=== PATIENT | female | born 2000 | race Caucasian/White ===

== ENCOUNTER 2023-07-03 06:28 | Emergency (ER) | payer BC, SELFPAY ==
[2023-07-03 06:42] VITALS: BP 111/78; PULSE 82; RESP 20; TEMP 36.4; O2SAT 98; BMI 32.9
--- NOTE | 2023-07-03 07:04 | ED.GENADULT ---
HPI - General Adult General Chief complaint: Chest Pain Stated complaint: Chest pain, R arm tingling Time Seen by Provider: 07/03/23 06:50 Source: patient Mode of arrival: ambulatory Limitations: no limitations History of Present Illness HPI narrative: 23-year-old female presents the emergency department with intermittent chest pain for the past week. Describes it as a burning sensation that is in the epigastrium, radiating up the anterior chest. Started about 1 hour prior to arrival of this morning. Not accompanied by dizziness, shortness of breath, syncope or neurological changes. It radiated into the right arm briefly today, no other effects. Has not tried Tylenol, ibuprofen, antacids or other similar medications. No recent alcohol, nonsmoker. No personal history of cardiac disease or clotting disorder. Reports that she gained a significant amount of weight while overseas in [place] earlier this year. Does report a history of anxiety, not currently on treatment. Does not feel like this is anxiety related. Does not feel like she is having difficulty assimilating into the [place] again. No history of GI surgeries. No vomiting, nausea, abdominal pain or lower GI symptoms. No bloody stools. No fevers, injury or trauma. Past medical history benign per her report. Denies any long-term medications. Nonsmoker, sulfa allergy. ROS notable for the chest and GI/epigastric symptoms as described above, otherwise denies times 12 systems. Related Data Home Medications Medication Instructions Recorded Confirmed No Known Home Medications 07/03/23 07/03/23 Allergies Allergy/AdvReac Type Severity Reaction Status Date / Time Sulfa (Sulfonamide AdvReac Verified 07/03/23 06:44 Antibiotics) [facility] Medical History (Updated 07/03/23 @ 07:50 by Renu Montero MD) No significant past medical history Surgical History (Updated 07/03/23 @ 07:15 by Cj Alejandro RN) No significant past surgical history Social History Smoking Status: Never smoker Second hand tobacco smoke exposure: No How often do you have a drink containing alcohol: never AUDIT-C Alcohol total score: 0 Non-prescribed substance use: denies use Exam Const: Vital Signs, click to edit/add: Vital Signs - 24 hr 07/03/23 06:42 Temperature 97.6 F Pulse Rate [Pulse Oximeter] 82 Respiratory Rate 20 Blood Pressure [Le ft Upper Arm] 111/78 Pulse Oximetry 98 Oxygen Delivery Me thod Room Air Documenting provider has reviewed patient's vital signs: yes Common normals: no apparent distress General appearance: cooperative, comfortable and well kempt Other: Mildly anxious but answers questions appropriately. Well nourished, well hydrated. HENMT: Common normals: normocephalic, moist oral mucous membranes and oropharynx normal Head and scalp: normocephalic Face and sinus: normal facial exam Eye: Common normals: conjunctivae normal General eye: normal appearance of both eyes Conjunctiva: conjunctiva(e) normal Neck & C-Spine: Common normals: no lymphadenopathy Resp: Common normals: normal respiratory effort, no use of accessory muscles and clear to auscultation bilaterally Effort & inspection: able to speak in complete sentences Auscultation: clear to auscultation bilaterally Cardio: Common normals: regular rate, regular rhythm, S1 normal heart sound, S2 normal heart sound and no murmurs Rate: regular rate Rhythm: regular rhythm Heart sounds: S1 normal and S2 normal GI: Common normals: Normal to inspection, nondistended, normoactive bowel sounds present, soft to palpation, non-tender, no hepatosplenomegaly and no masses Palpation: soft and no hepatosplenomegaly Extremity: Common normals: normal to inspection, normal capillary refill and no pedal edema Psych: Appearance: well kempt Attitude: calm and engaged Activity/motor behavior: appropriate eye contact Insight: insight good Judgement: judgment good Skin: Common normals: no rashes or lesions noted General skin exam: no rashes or lesions noted Course Course ED Course: Differential diagnosis including acute coronary syndrome, arrhythmia, pulmonary embolism, bronchospasm, GERD, anxiety, esophageal spasm, musculoskeletal etiology, among others. Vitals are normal, no tachycardia or hypoxia to suggest pulmonary embolism. Low risk for acute coronary syndrome. Since symptoms are epigastric and burning in nature, most likely this is GI. She also does report recent weight gain which could be contributing. Anxiety could also be contributing as well and she may not be fully aware of difficulties returning after studying abroad which is quite common. I recommended that we do an EKG and a troponin. I suspect that these will be normal. Will give omeprazole and a dose of GI cocktail and see if this improves her symptoms. This could give a some hints if the etiology is GI in nature. If it is helpful, will recommend that she take once daily omeprazole for the next few weeks and see if her symptoms resolve. If not, would recommend that she continue to explore her symptoms more and if we do notice an anxiety connection, explore this further through [facility]. Reevaluation(s) Time of Reevaluation #1: 07:50 Reevaluation #1: Patient reporting relief in symptoms with GI cocktail. Informed normal troponin and EKG. Counseled that etiology of her symptoms is likely noncardiac, most likely GI. I would like for her to start taking omeprazole once daily for the next 3 weeks. If not improving, primary care follow-up. Alarm symptoms and written instructions provided that would warrant repeat any presentation. She verbalizes understanding and agreement. Vital Signs Vital signs: Initial Vital Signs Respiratory Effort Normal, Spontaneous, Non-Labored 07/03/23 06:31 Respiratory Depth Normal 07/03/23 06:31 Respiratory Pattern Normal 07/03/23 06:31 Vital Signs Temperature 97.6 F 07/03/23 06:42 Pulse Rate 82 07/03/23 06:42 Respiratory Rate 20 07/03/23 06:42 Blood Pressure 111/78 07/03/23 06:42 Pulse Oximetry 98 07/03/23 06:42 Oxygen Delivery Method Room Air 07/03/23 06:42 Temperature 97.6 F 07/03/23 06:42 Pulse Rate 82 07/03/23 06:42 Respiratory Rate 20 07/03/23 06:42 Blood Pressure 111/78 07/03/23 06:42 Pulse Oximetry 98 07/03/23 06:42 Oxygen Delivery Method Room Air 07/03/23 06:42 Medications Administered Medications: Discontinued Medications Generic Name Dose Route Start Last Admin Trade Name Freq PRN Reason Stop Dose Admin Lidocaine/Aluminum/Magnesium/Simeth 30 ml 07/03/23 07:00 07/03/23 07:05 Gi Cocktail (Visc Lido/Antacid) 30 Ml PO 07/03/23 07:01 30 ml ONCE ONE Administration Omeprazole 20 mg 07/03/23 07:00 07/03/23 07:05 Omeprazole [address] PO 07/03/23 07:01 20 mg ONCE ONE Administration Medical Decision Making Lab Data Lab results reviewed: Yes I reviewed the patient's lab results Lab results narrative: Troponin reassuring, as expected Labs: Lab Results 07/03/23 Range/Units 07:00 POC Troponin I 0.00 L (0.01-0.04) ng/ml ECG Data Attestation: I personally reviewed and interpreted this ECG as follows: Prior ECG tracings: not available for review Interpretation: Normal sinus rhythm, rate of 80. Normal axis and intervals. No ST or T-wave abnormalities. Normal EKG. Discharge Plan Discharge Clinical Impression: Chest pain, non-cardiac Patient Disposition: Home, Self-Care Instructions: Noncardiac Chest Pain (ED) Additional Instructions: As we discussed, workup on your heart came back reassuring today. No signs of heart attack, abnormal heart rhythm, blood clot, asthma or other dangerous etiology. I suspect that your burning symptoms are related to acid reflux. Less likely they could be related to anxiety. I am glad that the stomach acid medicine was temporarily helpful for you. This does give some additional clues that the source of your pain is likely from your stomach. I would like for you to start taking an [id number] antacid medicine called omeprazole. You will take this once daily, preferably 30 minutes before a meal. Most people start getting relief within a few days of starting this medication. I would like for you to take it daily for 3 weeks. After those 3 weeks if all of your symptoms have resolved, you may discontinue the medicine or continue taking it if this is helpful for you. If after 3 weeks of taking the medication, you do not have relief, I would like for you to make a follow-up appointment in the clinic to test for bacterial infections, autoimmune conditions and other potential reasons for your symptoms. It is okay to use Tums on top of the stomach acid medicine, especially in the 1st few days. Avoid spicy foods, overeating, alcohol and any carbonated beverages. You may return to all work and school duties with no restrictions. Activity Level: No Restrictions Discharge Diet: Regular Prescriptions: No Action No Known Home Medications Follow Up/Referrals: Provider,Not a Local [Primary Care Provider] - Stand Alone Forms: [employer] Info Instructions
[2023-07-03] MEDS: GI COCKTAIL (VISC LIDO/ANTACID) 30 ML PO (07:05)
[2023-07-03] MEDS: OMEPRAZOLE 20 MG CAPSULE DR PO (07:05)
== END 2023-07-03 07:55 | disposition home or self-care (01) ==
PROVIDERS: Emergency Provider Family Medicine
DX: R07.89 Other chest pain (principal)
CPT/HCPCS: 84484; 93005; 99284; A9270

== ENCOUNTER 2024-01-31 17:21 | Emergency (ER) | payer BC, SELFPAY ==
[2024-01-31 17:26] VITALS: BP 126/72; PULSE 116; RESP 18; TEMP 36.9; O2SAT 94; BMI 32.0
--- NOTE | 2024-01-31 17:33 | CRLHL7_ITS ---
For Patients: As a result of the Century Cures Act, medical imaging exams and procedure reports are released immediately into your electronic medical record. You may view this report before your referring provider. If you have questions, please contact your health care provider. INDICATION: Lower abdominal pain x1 day. TECHNIQUE: CT abdomen and pelvis acquired with 85 cc of Omnipaque 350 IV contrast. COMPARISON: None. FINDINGS: Lower chest: Unremarkable. Liver: Unremarkable. Normal in size and attenuation. No suspicious masses. Gallbladder and bile ducts: Unremarkable. No stones or inflammation. No biliary dilatation. Pancreas: Unremarkable. No mass or inflammation. Spleen: Unremarkable. Normal in size. No masses. Adrenal glands: Unremarkable. No nodules. Kidneys: Unremarkable. No suspicious masses, stones, or hydronephrosis. GI tract: Unremarkable. Normal in caliber. No sign of mass or inflammation. Normal appendix. Vasculature: Abdominal aorta is normal in caliber. Mesenteric arteries are patent. Lymph nodes: No lymphadenopathy. Peritoneum/Abdominal Wall: Unremarkable. No free air or significant free fluid. Pelvis: Unremarkable. Dominant follicle within the left ovary. Bones: Unremarkable for age. IMPRESSION: Unremarkable CT of the abdomen and pelvis. No acute findings. Normal appendix. Please note that all CT scans at this facility use dose modulation, iterative reconstruction, and/or weight-based dosing when appropriate to reduce radiation dose to as low as reasonably achievable. Dictated by Garth Mota MD @ 01/31/2024 6:48:20 PM (Electronically Signed)
--- NOTE | 2024-01-31 17:36 | ED_ITS ---
HPI - Abdominal Pain General Chief Complaint: Abdominal Pain Stated Complaint: Nausea, abdominal pain Time Seen by Provider: 01/31/24 17:21 History of Present Illness HPI narrative: Patient is a 24-year-old woman who comes in today with nausea vomiting and diarrhea approximately 48 hours duration. The pain is diffuse. She has had no dysuria no blood in her stool or vomit. No reflux symptoms. No chills or night sweats. She has otherwise been in her usual state of health. She does not believe she is . She takes minimal home medications. She has no other major concerns. Related Data Home Medications ?Medication ?Instructions ?Recorded ?Confirmed No Known Home Medications 07/03/23 07/03/23 Allergies Allergy/AdvReac Type Severity Reaction Status Date / Time Sulfa (Sulfonamide AdvReac Verified 01/31/24 17:29 Antibiotics) Review of Systems Status of ROS Reports: 6 or more systems reviewed and unremarkable except as noted in History and below PFSH [facility] Medical History No significant past medical history Surgical History No significant past surgical history Social History Smoking Status: Never smoker Do you use any of these nicotine containing products: None Second hand tobacco smoke exposure: No How often do you have a drink containing alcohol: never How often do you have six or more drinks on one occasion: Never AUDIT-C Alcohol total score: 0 Non-prescribed substance use: denies use Exam Narrative: Exam Narrative: EXAM GENERAL: Patient appears comfortable and well. EYES: No scleral icterus. ENT: Tympanic membranes and oropharynx normal. THYROID: no thyroid nodules or thyromegaly. LYMPH: No supraclavicular or cervical lymphadenopathy. SKIN: Visible skin seen during exam normal or with benign process only. EXT: No dependent lower extremity pedal edema. HEART: Regular rate and rhythm with no murmurs, rubs, or gallops. LUNGS: Clear to auscultation bilaterally with no crackles or wheezes. ABD: Soft, non tender, non distended. PSYCH: Good eye contact, speech is not pressured. Const: Vital Signs, click to edit/add: Vital Signs - 24 hr 11/16/24 17:26 Temperature 98.4 F Pulse Rate [Right Pulse Oximeter] 116 H Respiratory Rate 18 Blood Pressure [Ri ght Upper Arm] 126/72 Pulse Oximetry 94 Oxygen Delivery Me thod Room Air Course Course ED Course: Patient seen and examined. CT abdomen pelvis CBC comprehensive metabolic panel lipase UA pending. Patient given 500 mL bolus of normal saline 4 mg of IV Zofran. Vital Signs Vital signs: Initial Vital Signs Temperature 98.4 F 01/31/24 17:26 Temperature Source Temporal Artery Scan 01/31/24 17:26 Pulse Rate 116 H 01/31/24 17:26 Pulse Rhythm Regular 01/31/24 17:26 Pulse Strength 3+ Normal 01/31/24 17:26 Respiratory Rate 18 01/31/24 17:26 Blood Pressure 126/72 01/31/24 17:26 Blood Pressure Mean 90 01/31/24 17:26 Blood Pressure Position Sitting 01/31/24 17:26 Pulse Oximetry 94 01/31/24 17:26 Oxygen Delivery Method Room Air 01/31/24 17:26 Vital Signs Temperature 98.4 F 01/31/24 17:26 Pulse Rate 116 H 01/31/24 17:26 Respiratory Rate 18 01/31/24 17:26 Blood Pressure 126/72 01/31/24 17:26 Pulse Oximetry 94 01/31/24 17:26 Oxygen Delivery Method Room Air 01/31/24 17:26 Temperature 98.4 F 01/31/24 17:26 Pulse Rate 116 H 01/31/24 17:26 Respiratory Rate 18 01/31/24 17:26 Blood Pressure 126/72 01/31/24 17:26 Pulse Oximetry 94 01/31/24 17:26 Oxygen Delivery Method Room Air 01/31/24 17:26 Medications Administered Medications: Discontinued Medications Generic Name Dose Route Start Last Admin Trade Name Freq PRN Reason Stop Dose Admin Sodium Chloride 500 mls @ 500 mls/hr 01/31/24 17:33 01/31/24 18:49 0.9 % Sodium Chloride 500 Ml IV 01/31/24 18:32 Infused .Q1H ONE Infusion Ondansetron HCl 4 mg 01/31/24 17:35 01/31/24 17:45 Ondansetron 2 Mg/Ml Inj IVP 01/31/24 17:36 4 mg ONCE ONE Administration MDM - Abdominal Pain MDM Narrative Medical decision making narrative: Patient presents with nausea vomiting and abdominal pain. Laboratory studies and CT scan are reassuring. Normal exam and tachycardia is now improved with normal saline. I did treated with normal saline and Zofran. Differential diagnosis includes but not limited to gastroenteritis appendicitis salpingo itis PID cholecystitis. This time I did recommend Zofran 0 DT advancement of her diet activity avoid dairy and follow-up with her primary physician as needed. Lab Data Labs: Lab Results 01/31/24 01/31/24 Range/Units 17:39 17:50 WBC 13.40 H (4.50-11.00) K/uL RBC 5.55 H (4.00-5.20) m/uL Hgb 14.0 (12.0-16.0) gm/dL Hct 43.2 (33.0-51.0) % MCV 78 L (80-100) fL MCH 25 L (26-34) pg MCHC 32 (32-36) gm/dL RDW Coeff of Charlie 13.0 (11.5-15.5) % Plt Count 285 (140-440) K/uL Neut % (Auto) 88.8 H (42.0-72.0) % Lymph % (Auto) 5.4 L (20-44) % [place] % (Auto) 5.4 (0.0-11.0) % Eos % (Auto) 0.2 (0.0-7.0) % Baso % (Auto) 0.1 (0.0-3.0) % Neut # (Auto) 11.90 H (1.7-7.0) K/uL Lymph # (Auto) 0.70 L (0.90-2.90) K/uL [place] # (Auto) 0.70 (0.00-0.90) K/UL Eos # (Auto) 0.00 (0.00-0.50) K/uL Baso # (Auto) 0.00 (0.00-0.30) K/uL Abs Immat Gran (auto) 0.00 (0.00-0.30) K/uL Imm/Tot Granulo (auto) 0.1 % Sodium 135 (135-149) mmol/L Potassium 3.5 L (3.6-5.1) mmol/L Chloride 102 (96-114) mmol/L Carbon Dioxide 22 (20-32) mmol/L Anion Gap 11 (7-15) mEq/L BUN 9 (5-24) mg/dL Creatinine 0.6 (0.5-1.5) mg/dL Estimated Creat Clear 115.33 Estimated GFR 129 ml/min Glucose 116 H (60-115) mg/dL Calcium 9.3 (8.4-10.6) mg/dL Total Bilirubin 1.0 (0.1-1.5) mg/dL AST 28 (12-35) U/L ALT 31 (4-35) U/L Alkaline Phosphatase 55 (40-150) U/L Total Protein 8.3 (6.0-8.3) g/dL Albumin 4.8 (3.3-5.0) g/dL Urine Color Yellow (Yellow) Urine Appearance Cloudy A (Clear) Urine pH 5.5 (5.0-8.5) Ur Specific [place] 1.025 (1.000-1.030) Urine Protein 1+ A (Negative) Urine Glucose (UA) Negative (Negative) Urine Ketones 2+ A (Negative) Urine Blood Negative (Negative) Urine Nitrite Negative (Negative) Urine Bilirubin 1+ A (Negative) Urine Urobilinogen 0.2 (0.2-1.0) Ur Leukocyte Esterase Negative (Negative) Urine RBC 0-2 (0-2) Urine WBC 2-5 (0-5) Ur Squamous Epith Cells Many A (None-Few) Urine Bacteria Few A (None) Urine Mucus Moderate A (None) Discharge Plan Discharge Clinical Impression: Gastroenteritis Instructions: Gastroenteritis (ED) Additional Instructions: Zofran as needed Tylenol Motrin Rest Avoid dairy Fluids Activity Level: No Restrictions Discharge Diet: Regular Prescriptions: No Action No Known Home Medications Follow Up/Referrals: Provider,Not a Local [Primary Care Provider] - Stand Alone Forms: [employer] Info Instructions
[2024-01-31] MEDS: ONDANSETRON 2 MG/ML inj 4 MG IVP (17:45)
[2024-01-31 17:53] LABS: Basophils Percent Auto 0.1 % (0.0-3.0); Eosinophils Percent Auto 0.2 % (0.0-7.0); Hematocrit 43.2 % (33.0-51.0); Immature Granulocytes Pct Auto 0.1 %; Lymphocytes Percent Auto 5.4 % (20-44); Mean Corpuscular HGB Conc 32 gm/dL (32-36); Mean Corpuscular Hemoglobin 25 pg (26-34); Mean Corpuscular Volume 78 fL (80-100); Monocytes Percent Auto 5.4 % (0.0-11.0); Neutrophils Percent Auto 88.8 % (42.0-72.0); Platelet Count* 285 K/uL (140-440); Red Blood Count 5.55 m/uL (4.00-5.20)
[2024-01-31 17:56] LABS: Appearance Urine Cloudy (Clear); Bilirubin Urine 1+ (Negative); Blood Urine Negative (Negative); Color Urine Yellow (Yellow); Glucose Urine Negative (Negative); Ketones Urine 2+ (Negative); Leukocyte Esterase Urine Negative (Negative); Nitrite Urine Negative (Negative); Protein Urine 1+ (Negative); Specific Gravity Urine 1.025 (1.000-1.030); Urobilinogen Urine 0.2 (0.2-1.0); pH Urine 5.5 (5.0-8.5)
[2024-01-31 17:58] LABS: Slide Review Reflex No
[2024-01-31] MEDS: 0.9 % SODIUM CHLORIDE 500 ML 500 ML IV (17:59)
[2024-01-31 18:05] LABS: Bacteria Urine Few; RBC Urine 0-2 (0-2); Squamous Epithelial Cell Urine Many (None-Few)
[2024-01-31 18:06] LABS: Mucus Urine Moderate
[2024-01-31 18:09] LABS: Albumin* 4.8 g/dL (3.3-5.0); Chloride* 102 mmol/L (96-114); Potassium* 3.5 mmol/L (3.6-5.1); Sodium* 135 mmol/L (135-149)
[2024-01-31 18:11] LABS: Creatinine* 0.6 mg/dL (0.5-1.5); Est. Creatinine Clearance* 115.33; Estimated Glomerular Filt Rate 129 ml/min
[2024-01-31 18:12] LABS: Alanine Aminotransferase* 31 U/L (4-35); Alkaline Phosphatase* 55 U/L (40-150); Anion Gap 11 mEq/L (7-15); Aspartate Amino Transferase* 28 U/L (12-35); Blood Urea Nitrogen* 9 mg/dL (5-24); Calcium* 9.3 mg/dL (8.4-10.6); Carbon Dioxide* 22 mmol/L (20-32); Glucose* 116 mg/dL (60-115); Total Protein* 8.3 g/dL (6.0-8.3)
== END 2024-01-31 19:02 | disposition home or self-care (01) ==
PROVIDERS: Emergency Provider Internal Medicine
DX: K52.9 Noninfective gastroenteritis and colitis, unspecified (principal)
CPT/HCPCS: 36415; 74177; 80053; 81001; 81003; 85025; 87086; 96374; 99283; 99284; 99285; J2405; J7030; Q9967